=== PATIENT | female | born 1940 | race Caucasian/White ===

== ENCOUNTER 2018-05-17 14:30 | Outpatient (CLI) | payer MEDICARE | END 2018-05-17 14:31 | disposition home or self-care (01) | LOC: BICULT 14:30 | PROVIDERS: ATTEND Family Medicine | DX: R09.89 Other specified symptoms and signs involving the circulatory and respiratory systems (principal); I65.22 Occlusion and stenosis of left carotid artery | CPT/HCPCS: 93880 ==

== ENCOUNTER 2018-07-29 13:56 | Outpatient (CLI) | payer MEDICARE ==
--- NOTE | 2018-07-29 16:47 | BD ---
DEXA BONE DENSITY EXAM: HISTORY: An 77-year-old postmenopausal female for screening. COMPARISON: 09/15/2015 FINDINGS: LUMBAR SPINE BMD (g/cm2) T-SCORE L1 0.769 -2.0 L2 0.890 -1.3 L3 0.950 -1.2 L4 0.953 -1.0 TOTAL L1-L4 0.897 -1.4 LEFT FEMORAL NECK 0.578 -3.4 TOTAL PROXIMAL LEFT FEMUR: 0.816 -1.0 IMPRESSION: Osteopenia. This patient's bone density has not changed significantly compared to the prior examination. POS: [facility]
== END 2018-07-29 13:57 | disposition home or self-care (01) ==
LOC: BICMAMMO 13:56
PROVIDERS: ATTEND Family Medicine
DX: Z12.31 Encounter for screening mammogram for malignant neoplasm of breast (principal); Z13.820 Encounter for screening for osteoporosis; M81.0 Age-related osteoporosis without current pathological fracture; M85.88 Other specified disorders of bone density and structure, other site
CPT/HCPCS: 77063; 77067; 77080

== ENCOUNTER 2018-12-25 15:36 | Outpatient (CLI) | payer MEDICARE ==
--- NOTE | 2018-12-25 16:24 | MRI ---
MRI Lower Ext Jt Rt WO Con History: [Pain. M 25.461 effusion of right knee] Comparison: None. Findings: Medial meniscus: Full-thickness radial tear posterior root attachment medial meniscus with subsequent 3 mm medial extrusion of the medial meniscal body. There is also a radial oblique tear of the medial meniscal body extending from the free edge to the intermediate zone. Lateral meniscus: Superior articular surface horizontal flap tear posterior horn lateral meniscus ext ending to the root attachment. No lateral or extrusion. The ACL, PCL, MCL, LCL are intact. Extensor mechanism: Quadriceps tendon, patella, and patellar tendon are intact. Cartilage: Patellofemoral compartment: Few foci of 30-50% cartilage fraying the lateral patellar facet. There ar e also high-grade cartilage fissures of the medial trochlea with subcortical reactive marrow changes. Medial compartment: High grade cartilage loss of the weightbearing surface medial femoral condyle and medial tibial plateau. Lateral compartment: Intact Muscles: The muscle signal and bulk is normal. Soft tissues: Small popliteal cyst without evidence of dehiscence. Bones: Focal subcortical insufficiency fracture of the medial tibial plateau submeniscal surface. Impression: 1. Full-thickness radial tear posterior root attachment medial meniscus with subsequent 3 mm medial g utter extrusion. 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 2. Incomplete radial oblique tear of the medial meniscal body extending from the free edge to the int ermediate zone. 3. Superior articular surface horizontal flap tear of the lateral meniscus posterior horn. 4. Small popliteal cyst without evidence of dehiscence. 5. 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
== END 2018-12-25 15:37 | disposition home or self-care (01) ==
LOC: TBSIIMAG 15:36
PROVIDERS: ATTEND Emergency Medicine Sports Medicine
DX: M17.11 Unilateral primary osteoarthritis, right knee (principal); M25.461 Effusion, right knee; S83.241A Other tear of medial meniscus, current injury, right knee, initial encounter; S83.281A Other tear of lateral meniscus, current injury, right knee, initial encounter; M71.21 Synovial cyst of popliteal space [Baker], right knee; M94.261 Chondromalacia, right knee

== ENCOUNTER 2020-03-03 10:48 | Outpatient (CLI) | payer MEDICARE ==
--- NOTE | 2020-03-03 11:27 | MMO ---
Bilateral MAMMO Bilat Screen [facility]. CLINICAL HISTORY: Patient is 79 years old and is seen for screening. The patient has no family history of breast cancer. The patient has no personal history of cancer. The patient has a history of left Excisional Biopsy in June, - benign. VIEWS: The views performed were: bilateral craniocaudal with tomosynthesis and bilateral mediolateral oblique with tomosynthesis. FILMS COMPARED: The present examination has been compared to prior imaging studies performed at [facility] on 11/07/2013, 09/15/2015, 01/26/2017 and 07/29/2018. This study has been interpreted with the assistance of computer-aided detection. MAMMOGRAM FINDINGS: The breasts are heterogeneously dense, which could obscure a lesion on mammography. Benign calcifications are noted bilaterally. There are no suspicious masses, suspicious calcifications, or new areas of architectural distortion. IMPRESSION: THERE IS NO MAMMOGRAPHIC EVIDENCE OF MALIGNANCY. A ROUTINE FOLLOW-UP MAMMOGRAM IN 1 YEAR IS RECOMMENDED. THE RESULTS OF THIS EXAM WERE SENT TO THE PATIENT. ACR BI-RADS Category 2 - Benign finding MAMMOGRAPHY NOTE: 1. A negative mammogram report should not delay a biopsy if a dominant of clinically suspicious mass is present. 2. Approximately 10% to 15% of breast cancers are not detected by mammography. 3. Adenosis and dense breasts may obscure an underlying neoplasm. Reported by: ROBERT KAHN MD Electonically Signed: [id number]
== END 2020-03-03 10:49 | disposition home or self-care (01) ==
LOC: BICMAMMO 10:48
PROVIDERS: ATTEND Family Medicine
DX: Z12.31 Encounter for screening mammogram for malignant neoplasm of breast (principal); Z91.89 Other specified personal risk factors, not elsewhere classified
CPT/HCPCS: 77063; 77067

== ENCOUNTER 2021-05-09 09:54 | Outpatient (CLI) | payer MEDICARE | END 2021-05-09 09:55 | disposition home or self-care (01) | LOC: BICMAMMO 09:54 | PROVIDERS: ATTEND Family Medicine | DX: Z12.31 Encounter for screening mammogram for malignant neoplasm of breast (principal); M81.0 Age-related osteoporosis without current pathological fracture; Z91.89 Other specified personal risk factors, not elsewhere classified | CPT/HCPCS: 77063; 77067; 77080 ==

== ENCOUNTER 2023-09-04 09:40 | Outpatient (CLI) | payer MEDICARE | END 2023-09-04 09:41 | disposition home or self-care (01) | LOC: BICMAMMO 09:40 | PROVIDERS: ATTEND Family Medicine | DX: Z12.31 Encounter for screening mammogram for malignant neoplasm of breast (principal); Z13.820 Encounter for screening for osteoporosis; M81.0 Age-related osteoporosis without current pathological fracture; M85.89 Other specified disorders of bone density and structure, multiple sites; Z91.89 Other specified personal risk factors, not elsewhere classified; Z78.0 Asymptomatic menopausal state | CPT/HCPCS: 77063; 77067; 77080 ==

== ENCOUNTER 2024-09-05 10:48 | Outpatient (CLI) | payer MEDICARE | END 2024-09-05 10:49 | disposition home or self-care (01) | LOC: BICMAMMO 10:48 | PROVIDERS: ATTEND Family Medicine | DX: Z12.31 Encounter for screening mammogram for malignant neoplasm of breast (principal); Z91.89 Other specified personal risk factors, not elsewhere classified | CPT/HCPCS: 77063; 77067 ==